=== PATIENT | male | born 1945 | race Caucasian/White ===

== ENCOUNTER 2017-11-02 14:47 | Emergency (ER) | payer MEDICARE, BC, OTHER ==
--- NOTE | 2017-11-02 15:19 | ED ---
General Adult HPI - General Chief complaint: Arrhythmia/Palpitations Stated complaint: Irregular heartbeat Time Seen by Provider: 11/02/17 14:56 Source: patient, RN notes reviewed, old records reviewed Mode of arrival: wheelchair Limitations: no limitations - History of Present Illness Initial comments: This is a 72-year-old male the ER for evaluation of possible RA. Patient sent in by family doctor for evaluation regards to lower heart rate. Patient denies complaints states he feels fine. No other complaints. Patient does have pain pump, but no other new medications. No fevers no cough or congestion no chest pain. Patient states his is interactive her normal checkup and blood heart rate was reading low. I also we will here in triage. - Related Data Home Medications Medication Instructions Recorded Confirmed Citalopram Hydrobromide [CeleXA] 20 mg PO DAILY 10/01/15 11/02/17 Lisinopril [Zestril] 10 mg PO BID 10/01/15 11/02/17 Morphine & Baclofen Infusion Pump 1 dose CONTINUOUS 10/01/15 11/02/17 Atenolol [Tenormin] 25 mg PO DAILY 11/02/17 11/02/17 Methimazole [Tapazole] 5 mg PO DAILY 11/02/17 11/02/17 Mirabegron [Myrbetriq] 50 mg PO DAILY 11/02/17 11/02/17 Pregabalin [Lyrica] 75 mg PO BID 11/02/17 11/02/17 Triamcinolone 0.025% Cream 1 applic TOPICAL DAILY 11/02/17 11/02/17 [Kenalog 0.025% Cream] Allergies Allergy/AdvReac Type Severity Reaction Status Date / Time ampicillin AdvReac Nausea & Verified 11/02/17 15:29 Vomiting sulfamethoxazole AdvReac Nausea & Verified 11/02/17 15:29 [From Bactrim] Vomiting trimethoprim [From Bactrim] AdvReac Nausea & Verified 11/02/17 15:29 Vomiting Review of Systems ROS Statement: Those systems with pertinent positive or pertinent negative responses have been documented in the HPI. ROS Other: All systems not noted in ROS Statement are negative. Past Medical History Past Medical History: Coronary Artery Disease (CAD), Hyperlipidemia History of Any Multi-Drug Resistant Organisms: None Reported Past Surgical History: Orthopedic Surgery Past Psychological History: No Psychological Hx Reported Smoking Status: Former smoker Past Alcohol Use History: None Reported Past Drug Use History: None Reported General Exam Limitations: no limitations General appearance: alert, in no apparent distress Head exam: Present: atraumatic, normocephalic, normal inspection Eye exam: Present: normal appearance, PERRL, EOMI. Absent: scleral icterus, conjunctival injection, periorbital swelling ENT exam: Present: normal exam, mucous membranes moist Neck exam: Present: normal inspection. Absent: tenderness, meningismus, lymphadenopathy Respiratory exam: Present: normal lung sounds bilaterally. Absent: respiratory distress, wheezes, rales, rhonchi, stridor Cardiovascular Exam: Present: regular rate, normal rhythm, normal heart sounds. Absent: systolic murmur, diastolic murmur, rubs, gallop, clicks GI/Abdominal exam: Present: soft, normal bowel sounds. Absent: distended, tenderness, guarding, rebound, rigid Extremities exam: Present: normal inspection, full ROM, normal capillary refill. Absent: tenderness, pedal edema, joint swelling, calf tenderness Back exam: Present: normal inspection Neurological exam: Present: alert, oriented X3, CN II-XII intact Psychiatric exam: Present: normal affect, normal mood Skin exam: Present: warm, dry, intact, normal color. Absent: rash Course Vital Signs 11/02/17 11/02/17 11/02/17 14:51 15:23 16:14 Temperature 98.3 F Pulse Rate 40 L 79 75 Respiratory 20 18 20 Rate Blood Pressure 157/71 151/68 130/76 O2 Sat by Pulse 93 L 98 98 Oximetry - Reevaluation(s) Reevaluation #1: 11/02/17 15:31 Heart rate here in the room does show in the high 70s to 80 EKG Findings - EKG Comments: EKG Findings:: EKG shows sinus rhythm rate of 76, MO 132, QRS 80, QTC 434 Medical Decision Making - Lab Data Result diagrams: 11/02/17 15:00 11/02/17 15:00 Lab Results 11/02/17 11/02/17 11/02/17 Range/Units 15:00 15:00 15:00 WBC 6.9 (3.8-10.6) k/uL RBC 4.40 (4.30-5.90) m/uL Hgb 13.2 (13.0-17.5) gm/dL Hct 41.4 (39.0-53.0) % MCV 94.0 (80.0-100.0) fL MCH 30.1 (25.0-35.0) pg MCHC 32.0 (31.0-37.0) g/dL RDW 13.4 (11.5-15.5) % Plt Count 231 (150-450) k/uL Neutrophils % 70 % Lymphocytes % 18 % Monocytes % 6 % Eosinophils % 4 % Basophils % 1 % Neutrophils # 4.8 (1.3-7.7) k/uL Lymphocytes # 1.3 (1.0-4.8) k/uL Monocytes # 0.4 (0-1.0) k/uL Eosinophils # 0.3 (0-0.7) k/uL Basophils # 0.0 (0-0.2) k/uL PT (9.0-12.0) sec INR (<1.2) APTT (22.0-30.0) sec Sodium 142 (137-145) mmol/L Potassium 5.1 (3.5-5.1) mmol/L Chloride 104 (98-107) mmol/L Carbon Dioxide 30 (22-30) mmol/L Anion Gap 8 mmol/L BUN 16 (9-20) mg/dL Creatinine 0.56 L (0.66-1.25) mg/dL Est GFR (MDRD) Af Amer >60 (>60 ml/min/1.73 sqM) Est GFR (MDRD) Non-Af >60 (>60 ml/min/1.73 sqM) Glucose 108 H (74-99) mg/dL Plasma Lactic Acid Abebe (0.7-2.0) mmol/L Calcium 9.0 (8.4-10.2) mg/dL Phosphorus 4.1 (2.5-4.5) mg/dL Magnesium 2.0 (1.6-2.3) mg/dL Total Bilirubin 0.3 (0.2-1.3) mg/dL AST 16 L (17-59) U/L ALT 19 L (21-72) U/L Alkaline Phosphatase 103 (38-126) U/L Total Creatine Kinase 78 (55-170) U/L CK-MB (CK-2) 1.9 (0.0-2.4) ng/mL CK-MB (CK-2) Rel Index 2.4 Troponin I <0.012 (0.000-0.034) ng/mL Total Protein 6.7 (6.3-8.2) g/dL Albumin 3.8 (3.5-5.0) g/dL 11/02/17 11/02/17 Range/Units 15:00 15:00 WBC (3.8-10.6) k/uL RBC (4.30-5.90) m/uL Hgb (13.0-17.5) gm/dL Hct (39.0-53.0) % MCV (80.0-100.0) fL MCH (25.0-35.0) pg MCHC (31.0-37.0) g/dL RDW (11.5-15.5) % Plt Count (150-450) k/uL Neutrophils % % Lymphocytes % % Monocytes % % Eosinophils % % Basophils % % Neutrophils # (1.3-7.7) k/uL Lymphocytes # (1.0-4.8) k/uL Monocytes # (0-1.0) k/uL Eosinophils # (0-0.7) k/uL Basophils # (0-0.2) k/uL PT 10.8 (9.0-12.0) sec INR 1.1 (<1.2) APTT 23.6 (22.0-30.0) sec Sodium (137-145) mmol/L Potassium (3.5-5.1) mmol/L Chloride (98-107) mmol/L Carbon Dioxide (22-30) mmol/L Anion Gap mmol/L BUN (9-20) mg/dL Creatinine (0.66-1.25) mg/dL Est GFR (MDRD) Af Amer (>60 ml/min/1.73 sqM) Est GFR (MDRD) Non-Af (>60 ml/min/1.73 sqM) Glucose (74-99) mg/dL Plasma Lactic Acid Abebe 0.9 (0.7-2.0) mmol/L Calcium (8.4-10.2) mg/dL Phosphorus (2.5-4.5) mg/dL Magnesium (1.6-2.3) mg/dL Total Bilirubin (0.2-1.3) mg/dL AST (17-59) U/L ALT (21-72) U/L Alkaline Phosphatase (38-126) U/L Total Creatine Kinase (55-170) U/L CK-MB (CK-2) (0.0-2.4) ng/mL CK-MB (CK-2) Rel Index Troponin I (0.000-0.034) ng/mL Total Protein (6.3-8.2) g/dL Albumin (3.5-5.0) g/dL Disposition Clinical Impression: Bradycardia Disposition: HOME SELF-CARE Condition: Good Instructions: Bradycardia (ED) Referrals: Kang Garrett MD [Primary Care Provider] - 1-2 days
[2017-11-02 15:30] LABS: Basophils % (A) 1 %; Eosinophils # (A) 0.3 k/uL (0-0.7); Eosinophils % (A) 4 %; HCT 41.4 % (39.0-53.0); HGB 13.2 gm/dL (13.0-17.5); Lymphocytes # (A) 1.3 k/uL (1.0-4.8); Lymphocytes % (A) 18 %; MCH 30.1 pg (25.0-35.0); Mean Platelet Volume 7.9; Monocytes # (A) 0.4 k/uL (0-1.0); Monocytes % (A) 6 %; Neutrophils # (A) 4.8 k/uL (1.3-7.7); Neutrophils % (A) 70 %; Platelet Count 231 k/uL (150-450); RDW 13.4 % (11.5-15.5); WBC 6.9 k/uL (3.8-10.6)
[2017-11-02 15:38] LABS: INR 1.1 (<1.2); Partial Thromboplastin Time 23.6 sec (22.0-30.0); Prothrombin Time 10.8 sec (9.0-12.0)
--- NOTE | 2017-11-02 15:46 | XR ---
EXAMINATION TYPE: XR chest 2V DATE OF EXAM: 11/02/2017 COMPARISON: 10/04/2012 TECHNIQUE: PA and lateral views submitted. HISTORY: Weakness FINDINGS: Subsegmental consolidation left lung base. Hyperinflation suggests COPD. The heart is enlarged. Upper mediastinum is prominent which may be positional. Suspect lower lobe infiltrate. IMPRESSION: 1. Widened mediastinum recommend CT of the chest. 2. Left lower lobe infiltrate correlate for pneumonia.
[2017-11-02 15:53] LABS: Creatine Kinase 78 U/L (55-170)
[2017-11-02 15:56] LABS: ALT 19 U/L (21-72); AST 16 U/L (17-59); Albumin 3.8 g/dL (3.5-5.0); Alkaline Phosphatase 103 U/L (38-126); Anion Gap 8 mmol/L; Blood Urea Nitrogen 16 mg/dL (9-20); Carbon Dioxide 30 mmol/L (22-30); Chloride 104 mmol/L (98-107); Glucose 108 mg/dL (74-99); Phosphorus 4.1 mg/dL (2.5-4.5); Potassium 5.1 mmol/L (3.5-5.1); Sodium 142 mmol/L (137-145); Total Bilirubin 0.3 mg/dL (0.2-1.3); Total Protein 6.7 g/dL (6.3-8.2)
[2017-11-02 16:06] LABS: Creatine Kinase MB 1.9 ng/mL (0.0-2.4); Troponin I <0.012 ng/mL (0.000-0.034)
[2017-11-02] MEDS ORDERED: RX INFO: IV CONTRAST WAS GIVEN 1 EACH MISC MISCELLANE PRN (16:14)
--- NOTE | 2017-11-02 16:57 | CT ---
EXAMINATION TYPE: CT angio chest DATE OF EXAM: 11/02/2017 4:41 PM COMPARISON: NONE HISTORY: bradycardia. CT DLP: 217.6 mGycm Automated exposure control for dose reduction was used. CONTRAST: CTA scan of the thorax is performed with IV Contrast, patient injected with 100 mL of Omnipaque 350, pulmonary embolism protocol. There are 3-D post processed images.. FINDINGS: There is a large mass at the thoracic inlet that appears to be markedly enlarged thyroid gland that m easures 10 x 5 cm. Thoracic aorta is intact without evidence of aneurysm or dissection. Ascending aorta measures 3.6 cm. I see no filling defects in the pulmonary arteries. There is elevated left diaphragm. There is no pe ricardial effusion. There is no definite pleural effusion. There is subpleural interstitial infiltrat e at the lung bases and more on the right side. There is thoracic levoscoliosis. I see no bony destru ctive process. IMPRESSION: NO EVIDENCE OF PULMONARY EMBOLISM. LARGE MASS AT THE THORACIC INLET CONSISTENT WITH RETROSTERNAL GOIT ER. FIBROTIC CHANGES AT THE LUNG BASES. ELEVATED LEFT DIAPHRAGM COULD RELATE TO DIAPHRAGMATIC PARALYSIS. THERE IS ATELECTASIS AT THE LATERAL LEFT LUNG BASE.
[2017-11-02 17:43] VITALS: BP 135/76; PULSE 83; RESP 18; TEMP 97.8
== END 2017-11-02 17:44 | disposition home or self-care (01) ==
LOC: EC 14:47
DX: R00.1 Bradycardia, unspecified (principal); I25.10 Atherosclerotic heart disease of native coronary artery without angina pectoris; E78.5 Hyperlipidemia, unspecified; Z87.891 Personal history of nicotine dependence; Z79.899 Other long term (current) drug therapy; Z79.891 Long term (current) use of opiate analgesic; Z88.1 Allergy status to other antibiotic agents; Z88.2 Allergy status to sulfonamides
CPT/HCPCS: 36415; 93005; 80053; 82550; 82553; 83605; 83735; 84100; 84484; 85025; 85610; 85730; 71046; 71275; 99285; Q9967

== ENCOUNTER → 2017-11-15 | Outpatient (CLI) | payer MEDICARE, BC, OTHER ==
--- NOTE | 2017-11-22 22:55 | HM ---
HOLTER MONITOR REPORT Patient in his diary did not indicate any significant symptoms. Predominant rhythm appears to be sinus with some artifact. There was some sinus arrhythmia noted. There were isolated ventricular ectopic beats noted. There were also some ventricular couplets seen. There was no evidence of any significant bradyarrhythmia. The heart rate ranged from 51 to 113 beats per minute with average heart rate of 73 beats per minute. There was no evidence of any significant symptoms reported in the diary. FINAL IMPRESSION: Predominantly sinus rhythm with average heart rate of 73 beats per minute. Frequent isolated ventricular ectopic beats were seen. Some of these were seen in the form of couplets and rare triplets. There was no evidence of any significant SVT or bradyarrhythmia. Patient did not report any symptoms. MMODL / IJN: [id number] /
== END | disposition home or self-care (01) ==
LOC: RADECHMAIN 12:56
PROVIDERS: ATTEND Internal Medicine
DX: R94.31 Abnormal electrocardiogram [ECG] [EKG] (principal)
CPT/HCPCS: 93225; 93226

== ENCOUNTER 2018-02-03 11:59 | Day surgery (SDC) | payer MEDICARE, BC, OTHER ==
[2018-02-02 08:21] VITALS: BMI 19.9
[2018-02-03 12:28] VITALS: PULSE 68; RESP 20; TEMP 98.5
[2018-02-03 12:57] LABS: Anion Gap 8 mmol/L; Blood Urea Nitrogen 16 mg/dL (9-20); Carbon Dioxide 30 mmol/L (22-30); Chloride 103 mmol/L (98-107); Glucose 81 mg/dL (74-99); Potassium 4.7 mmol/L (3.5-5.1); Sodium 141 mmol/L (137-145)
[2018-02-03] MEDS ORDERED: LIDOCAINE 2% INJ 20 MG/ML SQ ONE (13:25)
[2018-02-03 14:01] VITALS: BP 140/80
--- NOTE | 2018-02-04 11:51 | IR ---
EXAMINATION TYPE: IR cvc insert >=5 years DATE OF EXAM: 02/03/2018 COMPARISON: NONE CLINICAL HISTORY: Infection Needs long-term intravenous access for antibiotics. PROCEDURE: After informed consent, the skin overlying the right brachial vein was localized with ultrasound and noted to be compressible and patent. An ultrasound image was obtained and submitted on the patient's chart. The overlying skin was prepped and draped and Lidocaine was used for local anesthesia. A sk in pooja was made with a scalpel. Access was gained to the vein under ultrasound guidance with a 21 g auge needle and a 0.018 inch wire was advanced. Access site was dilated with Peel-Away sheath and ca theter tailored to the appropriate length and advanced such that the distal tip is at the cavoatrial junction. Spot image was obtained verifying placement. Catheter was fixed to the skin and a sterile dressing was placed following hemostasis. Catheter was aspirated and flushed with saline. Patient was discharged in stable condition without complication. Maximal barrier technique is utilized. Ultr asound image is documented on the chart. Ultrasound used with sterile technique. Fluoro time and fluoroscopic images submitted to document procedure: 838 intraoperative C-arm images, 1.4 minutes fluoroscopy time IMPRESSION: STATUS POST ULTRASOUND AND FLUOROSCOPIC GUIDED PICC LINE PLACEMENT, READY FOR USE. THIS PROCEDURE WAS PERFORMED BY THE UNDERSIGNED.
== END 2018-02-03 13:50 | disposition home or self-care (01) ==
LOC: CATHCVL 11:59
PROVIDERS: ATTEND Radiology Diagnostic Radiology
DX: N39.0 Urinary tract infection, site not specified (principal); B96.5 Pseudomonas (aeruginosa) (mallei) (pseudomallei) as the cause of diseases classified elsewhere; R31.0 Gross hematuria; N35.014 Post-traumatic urethral stricture, male, unspecified; N45.1 Epididymitis; R35.1 Nocturia; I10 Essential (primary) hypertension; E07.9 Disorder of thyroid, unspecified; M19.90 Unspecified osteoarthritis, unspecified site; F32.9 Major depressive disorder, single episode, unspecified; Z89.519 Acquired absence of unspecified leg below knee; Z79.891 Long term (current) use of opiate analgesic; Z79.899 Other long term (current) drug therapy; Z88.1 Allergy status to other antibiotic agents; Z88.2 Allergy status to sulfonamides; Z87.891 Personal history of nicotine dependence
CPT/HCPCS: 36569; 76937; 77001; 80048; C1751; C1769; J2001

== ENCOUNTER 2019-07-22 17:05 | Observation (INO) | payer MEDICARE, BC, OTHER ==
[2019-07-22] MEDS ORDERED: SODIUM CHLORIDE 0.9% 1,000 ML IV STA ×2 (17:30)
[2019-07-22] MEDS ORDERED: SODIUM CHLORIDE 0.9% 500 ML 500 ML IV STA (17:30)
[2019-07-22] MEDS ORDERED: DIAZEPAM 5 MG/ML 2 ML INJ IVP STA (17:30)
[2019-07-22] MEDS ORDERED: hydrALAZINE HCL 20 MG/ML 1 ML VIAL IVP STA (17:30)
[2019-07-22] MEDS ORDERED: ONDANSETRON 4 MG/2 ML VIAL IVP STA (17:30)
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
[2019-07-22 18:29] LABS: Basophils # (A) 0.1 k/uL (0-0.2); Basophils % (A) 1 %; Eosinophils # (A) 0.1 k/uL (0-0.7); Eosinophils % (A) 1 %; HCT 48.1 % (39.0-53.0); HGB 15.6 gm/dL (13.0-17.5); Lymphocytes # (A) 0.4 k/uL (1.0-4.8); Lymphocytes % (A) 3 %; MCH 30.9 pg (25.0-35.0); MCHC 32.3 g/dL (31.0-37.0); MCV 95.5 fL (80.0-100.0); Mean Platelet Volume 7.5; Monocytes # (A) 0.6 k/uL (0-1.0); Monocytes % (A) 5 %; Neutrophils # (A) 10.9 k/uL (1.3-7.7); Neutrophils % (A) 90 %; Platelet Count 219 k/uL (150-450); RBC 5.04 m/uL (4.30-5.90); WBC 12.2 k/uL (3.8-10.6)
[2019-07-22 18:39] LABS: ALT 17 U/L (21-72); AST 16 U/L (17-59); African American GFR (CKD) >90 (>60 ml/min/1.73 sqM); Albumin 4.4 g/dL (3.5-5.0); Alkaline Phosphatase 79 U/L (38-126); Anion Gap 7 mmol/L; Blood Urea Nitrogen 28 mg/dL (9-20); Calcium 9.4 mg/dL (8.4-10.2); Carbon Dioxide 29 mmol/L (22-30); Chloride 106 mmol/L (98-107); Creatine Kinase 28 U/L (55-170); Glucose 160 mg/dL (74-99); Magnesium 2.1 mg/dL (1.6-2.3); Non-African American GFR(CKD) >90 (>60 ml/min/1.73 sqM); Potassium 4.5 mmol/L (3.5-5.1); Sodium 142 mmol/L (137-145); Total Bilirubin 0.4 mg/dL (0.2-1.3); Total Protein 7.6 g/dL (6.3-8.2)
[2019-07-22] MEDS ORDERED: LORazepam 2 MG/ML INJ IV PRN (20:13)
[2019-07-22] MEDS ORDERED: MORPHINE SULFATE 4 MG/ML SYRINGE IVP STA (20:13)
[2019-07-22] MEDS ORDERED: MORPHINE SULFATE 4 MG/ML SYRINGE IVP PRN (20:13)
[2019-07-22] MEDS ORDERED: LORazepam 2 MG/ML INJ IV STA (20:13)
[2019-07-22 21:16] LABS: Appearance,Urine Clear (Clear); Bacteria,Urine Many /hpf; Bilirubin,Urine Negative (Negative); Blood,Urine Negative (Negative); Color,Urine Light Yellow; Glucose,Urine (UA) Negative (Negative); Ketones,Urine Negative (Negative); Leukocyte Esterase,Urine Negative (Negative); Mucus,Urine Rare /hpf; Nitrite,Urine Positive (Negative); PH, Urine 5.5 (5.0-8.0); Protein,Urine Trace (Negative); RBC,Urine <1 /hpf (0-5); Specific Gravity,Urine 1.017 (1.001-1.035); Squamous Epithelial Cell,Urine <1 /hpf (0-4); Urobilinogen,Urine <2.0 mg/dL (<2.0); WBC,Urine 5 /hpf (0-5)
[2019-07-22 21:29] LABS: Amphetamine Screen,Urine Not Detected (NotDetected); Barbiturate Screen,Urine Not Detected (NotDetected); Benzodiazepines Screen,Urine Not Detected (NotDetected); Cocaine Screen,Urine Not Detected (NotDetected); Methadone Screen, Urine Not Detected (NotDetected); Opiate Screen,Urine Detected (NotDetected); Oxycodone Screen, Urine Not Detected (NotDetected); Phencyclidine Screen,Urine Not Detected (NotDetected); Tricyclic Antidepressant,Urine Not Detected (NotDetected); Urn Cannabinoid Scrn Not Detected (NotDetected)
[2019-07-22 23:23] VITALS: BMI 19.3
[2019-07-23] MEDS: LISINOPRIL 10 MG TAB PO SCH ×2 (10:11→20:53)
[2019-07-23] MEDS: hydrALAZINE HCL 20 MG/ML 1 ML VIAL IVP PRN (10:12)
[2019-07-23] MEDS: DULoxetine HCL 20 MG CAPSULE.DR PO SCH ×2 (10:12→21:39)
[2019-07-23] MEDS ORDERED: ONDANSETRON 4 MG/2 ML VIAL IVP PRN (11:22)
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
[2019-07-23] MEDS: LORazepam 1 MG TAB PO PRN ×2 (11:53→20:53)
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
[2019-07-23] MEDS ORDERED: HEPARIN SODIUM,PORCINE 5,000 UNIT/ML 1 ML VIAL SQ SCH (21:00)
[2019-07-23] MEDS ORDERED: NON FORMULARY DRUG (Mirabegron [Myrbetriq] 50 MG) PO SCH (21:00)
[2019-07-24 04:28] VITALS: TEMP 98.3
[2019-07-24] MEDS: hydrALAZINE HCL 20 MG/ML 1 ML VIAL IVP PRN (05:37)
[2019-07-24] MEDS: LISINOPRIL 10 MG TAB PO SCH (07:31)
[2019-07-24] MEDS: DULoxetine HCL 20 MG CAPSULE.DR PO SCH (07:32)
[2019-07-24 07:52] VITALS: BP 127/69; PULSE 120; RESP 15
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
[2019-07-24] MEDS ORDERED: METHIMAZOLE 5 MG TAB PO SCH (09:00)
[2019-07-24] MEDS ORDERED: PANTOPRAZOLE 40 MG/10 ML VIAL IVP SCH (09:00)
== END 2019-07-24 08:54 | disposition home or self-care (01) ==
LOC: EC 17:05 → 4MS4W 21:36
PROVIDERS: ADMIT Internal Medicine Geriatric Medicine; ATTEND Internal Medicine Geriatric Medicine
DX: G92 Toxic encephalopathy (principal); T40.2X5A Adverse effect of other opioids, initial encounter; G89.4 Chronic pain syndrome; I16.1 Hypertensive emergency; I10 Essential (primary) hypertension; E05.90 Thyrotoxicosis, unspecified without thyrotoxic crisis or storm; F32.9 Major depressive disorder, single episode, unspecified; N31.9 Neuromuscular dysfunction of bladder, unspecified; E78.5 Hyperlipidemia, unspecified; I49.9 Cardiac arrhythmia, unspecified; R01.1 Cardiac murmur, unspecified; L98.8 Other specified disorders of the skin and subcutaneous tissue; G81.91 Hemiplegia, unspecified affecting right dominant side; T87.34 Neuroma of amputation stump, left lower extremity; R53.83 Other fatigue; R63.0 Anorexia; R11.0 Nausea; R33.9 Retention of urine, unspecified; Z97.8 Presence of other specified devices; Z79.899 Other long term (current) drug therapy; Z79.891 Long term (current) use of opiate analgesic; Z88.0 Allergy status to penicillin; Z88.2 Allergy status to sulfonamides; Z88.8 Allergy status to other drugs, medicaments and biological substances; Z87.440 Personal history of urinary (tract) infections; Z87.828 Personal history of other (healed) physical injury and trauma; Z89.612 Acquired absence of left leg above knee; Z99.3 Dependence on wheelchair; Z98.890 Other specified postprocedural states; Z87.898 Personal history of other specified conditions; Z87.891 Personal history of nicotine dependence; Z88.5 Allergy status to narcotic agent; Z80.52 Family history of malignant neoplasm of bladder; Z80.1 Family history of malignant neoplasm of trachea, bronchus and lung
CPT/HCPCS: 96376 ×2; 96361 ×2; 96372; 96374; 96375; 99285; 36415; 80053; 82550; 83605; 83735; 84100; 84443; 84484; 85025; 81001; 80306; G0378 ×3; J2270 ×2; J0360 ×3; J1644; J3360; J2405 ×2

== ENCOUNTER 2020-03-22 09:51 | Inpatient (IN) | payer MEDICARE, BC, OTHER ==
[2020-03-22 10:12] LABS: Glucose,Whole Blood 120 mg/dL (75-99)
[2020-03-22] MEDS ORDERED: SODIUM CHLORIDE 0.9% 500 ML 500 ML IV STA (10:25)
[2020-03-22] MEDS ORDERED: MORPHINE SULFATE 4 MG/ML SYRINGE IV STA (10:25)
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
[2020-03-22 11:25] LABS: ALT 13 U/L (4-49); AST 25 U/L (17-59); African American GFR (CKD) >90 (>60 ml/min/1.73 sqM); Albumin 3.2 g/dL (3.5-5.0); Alkaline Phosphatase 114 U/L (38-126); Blood Urea Nitrogen 22 mg/dL (9-20); Calcium 8.8 mg/dL (8.4-10.2); Chloride 93 mmol/L (98-107); Glucose 119 mg/dL (74-99); Magnesium 2.1 mg/dL (1.6-2.3); Non-African American GFR(CKD) >90 (>60 ml/min/1.73 sqM); Potassium 4.9 mmol/L (3.5-5.1); Sodium 140 mmol/L (137-145); Total Bilirubin 0.8 mg/dL (0.2-1.3); Total Protein 5.8 g/dL (6.3-8.2)
--- NOTE | 2020-03-22 11:26 | XR ---
EXAMINATION TYPE: XR chest 2V DATE OF EXAM: 03/22/2020 COMPARISON: 11/02/2017 HISTORY: Shortness of breath TECHNIQUE: Frontal and lateral views of the chest are obtained. FINDINGS: Scattered senescent parenchymal changes noted. Hyperinflation compatible with COPD. Right lower lobe infiltrate and/or small effusion noted. Left basilar parenchymal scarring is suggest ed. Pulmonary venous congestion without overt failure. Heart size is stable. Prominence of the paratracheal soft tissue unchanged from prior study. No evidence for hilar prominence. Degenerative changes dorsal spine. IMPRESSION: 1. Right lower lobe infiltrate and/or small effusion noted. Left basilar parenchymal scarring is sugg ested. Pulmonary venous congestion without overt failure.
[2020-03-22 11:27] LABS: Prothrombin Time 10.1 sec (9.0-12.0)
[2020-03-22 11:31] LABS: Anion Gap 3 mmol/L
[2020-03-22 11:40] LABS: Anisocytosis Slight; Basophils % (A) 0 %; Eosinophils # (A) 0.3 k/uL (0-0.7); Eosinophils % (A) 4 %; HCT 33.1 % (39.0-53.0); HGB 9.7 gm/dL (13.0-17.5); Hypochromasia Marked; Lymphocytes # (A) 0.8 k/uL (1.0-4.8); Lymphocytes % (A) 11 %; MCHC 29.2 g/dL (31.0-37.0); MCV 95.9 fL (80.0-100.0); Macrocytosis Slight; Mean Platelet Volume 7.5; Monocytes # (A) 0.7 k/uL (0-1.0); Monocytes % (A) 10 %; Neutrophils # (A) 5.1 k/uL (1.3-7.7); Neutrophils % (A) 72 %; Platelet Count 267 k/uL (150-450); RBC 3.45 m/uL (4.30-5.90); RDW 17.7 % (11.5-15.5); WBC 7.1 k/uL (3.8-10.6)
[2020-03-22 11:49] LABS: Appearance,Urine Turbid (Clear); Bacteria,Urine Few /hpf; Bilirubin,Urine Negative (Negative); Blood,Urine Small (Negative); Color,Urine Yellow; Glucose,Urine (UA) Negative (Negative); Hyaline Casts,Urine 4 /lpf (0-2); Ketones,Urine Negative (Negative); Leukocyte Esterase,Urine Large (Negative); Mucus,Urine Rare /hpf; Nitrite,Urine Negative (Negative); Protein,Urine 2+ (Negative); RBC,Urine 9 /hpf (0-5); Specific Gravity,Urine 1.011 (1.001-1.035); Urobilinogen,Urine <2.0 mg/dL (<2.0); WBC,Urine >182 /hpf (0-5)
[2020-03-22 11:53] LABS: Carbon Dioxide 44 mmol/L (22-30)
[2020-03-22 12:07] LABS: Creatine Kinase 23 U/L (55-170)
[2020-03-22] MEDS ORDERED: LEVOFLOXACIN 750MG-D5W PMX 750 MG in DEXTROSE/WATER 1 150ML.BAG IVPB STA (13:32)
[2020-03-22] MEDS ORDERED: PNEUMONIA PROTOCOL UTILIZED 1 EACH MISC PO PRN (13:32)
[2020-03-22] MEDS: SODIUM CHLORIDE 0.9% 1,000 ML IV SCH (14:14)
[2020-03-22] MEDS: ALBUTEROL NEBULIZED 2.5 MG/3 ML INHALATION SCH ×2 (16:22→21:45)
[2020-03-22] MEDS ORDERED: polyethylene glycoL 3350 17 GM POWD.PACK PO PRN (21:10)
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
[2020-03-22] MEDS ORDERED: DOXYCYCLINE 100 MG in SODIUM CHLORIDE 0.9% 100 ML IVPB SCH (22:00)
[2020-03-22] MEDS: LORazepam 0.5 MG TAB PO PRN (22:10)
[2020-03-22] MEDS ORDERED: MIRTAZAPINE 15 MG TAB PO STA (23:28)
[2020-03-22] MEDS: DOXYCYCLINE 100 MG CAP PO SCH (23:47)
[2020-03-22] MEDS: BACLOFEN 10 MG TAB PO SCH (23:47)
[2020-03-22] MEDS: GABAPENTIN 100 MG CAP PO SCH (23:47)
[2020-03-23] MEDS: ALBUTEROL NEBULIZED 2.5 MG/3 ML INHALATION SCH ×4 (07:15→20:51)
[2020-03-23] MEDS: FLUTICASONE 44 MCG INHALER INHALATION SCH ×2 (07:15→20:52)
[2020-03-23] MEDS: LORazepam 0.5 MG TAB PO PRN (08:58)
[2020-03-23] MEDS: MULTIVITAMINS, THERA 1 EACH TAB PO SCH (08:58)
[2020-03-23] MEDS: GABAPENTIN 100 MG CAP PO SCH ×3 (08:58→23:13)
[2020-03-23] MEDS: PANTOPRAZOLE 40 MG TABLET PO SCH (08:58)
[2020-03-23] MEDS: METOPROLOL TARTRATE 25 MG TAB PO SCH ×2 (08:58→19:54)
[2020-03-23] MEDS: SENNOSIDES-DOCUSATE SODIUM 1 EACH TAB PO SCH ×2 (08:58→19:54)
[2020-03-23] MEDS: BACLOFEN 10 MG TAB PO SCH ×3 (08:58→23:13)
[2020-03-23] MEDS: DOXYCYCLINE 100 MG CAP PO SCH (08:59)
[2020-03-23] MEDS: methIMAzole 5 MG TAB PO SCH (08:59)
[2020-03-23] MEDS: ESCITALOPRAM 10 MG TAB PO SCH (08:59)
[2020-03-23] MEDS: ENOXAPARIN 40 MG/0.4 ML SYRINGE SQ SCH (08:59)
[2020-03-23] MEDS: FERROUS SULFATE 325 MG TAB PO SCH ×2 (08:59→19:54)
[2020-03-23] MEDS: lisinopriL 10 MG TAB PO SCH (08:59)
[2020-03-23] MEDS: SODIUM CHLORIDE 0.9% 1,000 ML IV SCH (09:46)
[2020-03-23 10:03] LABS: Anisocytosis Slight; Basophils % (A) 0 %; Eosinophils # (A) 0.1 k/uL (0-0.7); Eosinophils % (A) 3 %; HCT 25.5 % (39.0-53.0); Hypochromasia Marked; Lymphocytes # (A) 0.8 k/uL (1.0-4.8); Lymphocytes % (A) 14 %; MCH 28.7 pg (25.0-35.0); MCHC 29.1 g/dL (31.0-37.0); MCV 98.7 fL (80.0-100.0); Macrocytosis Slight; Mean Platelet Volume 8.3; Monocytes # (A) 0.4 k/uL (0-1.0); Monocytes % (A) 7 %; Neutrophils # (A) 4.2 k/uL (1.3-7.7); Neutrophils % (A) 75 %; Platelet Count 244 k/uL (150-450); RBC 2.59 m/uL (4.30-5.90); WBC 5.7 k/uL (3.8-10.6)
[2020-03-23 10:11] LABS: ALT 11 U/L (4-49); AST 19 U/L (17-59); African American GFR (CKD) >90 (>60 ml/min/1.73 sqM); Albumin 2.8 g/dL (3.5-5.0); Alkaline Phosphatase 101 U/L (38-126); Blood Urea Nitrogen 18 mg/dL (9-20); Calcium 8.3 mg/dL (8.4-10.2); Chloride 92 mmol/L (98-107); Glucose 259 mg/dL (74-99); Non-African American GFR(CKD) >90 (>60 ml/min/1.73 sqM); Potassium 4.2 mmol/L (3.5-5.1); Sodium 140 mmol/L (137-145); Total Bilirubin 0.6 mg/dL (0.2-1.3)
[2020-03-23 10:12] LABS: HGB 7.4 gm/dL (13.0-17.5)
[2020-03-23 10:17] LABS: Anion Gap 5 mmol/L
[2020-03-23 10:41] LABS: Carbon Dioxide 43 mmol/L (22-30)
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
[2020-03-23] MEDS: CLINDAMYCIN 600 MG in DEXTROSE 5% IN WATER 50 ML IVPB SCH ×6 (12:32→23:11)
[2020-03-23] MEDS: CEFEPIME 2 GM in SODIUM CHLORIDE 0.9% 100 ML IVPB SCH ×2 (12:42→19:53)
[2020-03-23 13:00] LABS: Glucose,Whole Blood 134 mg/dL (75-99)
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
--- NOTE | 2020-03-23 16:26 | XR ---
EXAMINATION TYPE: XR chest 2V DATE OF EXAM: 03/23/2020 COMPARISON: 03/22/2020 HISTORY: 74-year-old male pneumonia TECHNIQUE: AP and lateral views FINDINGS: Marked levoconvex scoliosis. There are moderate right and small left pleural effusions. This obscures the heart margins. Overall appearance is unchanged. Unable to exclude pulmonary vascular congestion. IMPRESSION: Continued moderate right and small left pleural effusions with adjacent atelectasis and/or consolidat ion. Correlate to exclude background of mild pulmonary vascular congestion. Leftward scoliosis.
[2020-03-23] MEDS: MIRTAZAPINE 15 MG TAB PO SCH (19:54)
[2020-03-24] MEDS: ACETAMINOPHEN TAB 325 MG TAB PO PRN ×2 (03:06→11:14)
[2020-03-24] MEDS: PANTOPRAZOLE 40 MG TABLET PO SCH (07:35)
[2020-03-24] MEDS: METOPROLOL TARTRATE 25 MG TAB PO SCH ×2 (07:35→21:09)
[2020-03-24] MEDS: BACLOFEN 10 MG TAB PO SCH ×3 (07:35→23:18)
[2020-03-24] MEDS: GABAPENTIN 100 MG CAP PO SCH ×3 (07:35→23:17)
[2020-03-24] MEDS: MULTIVITAMINS, THERA 1 EACH TAB PO SCH (07:35)
[2020-03-24] MEDS: lisinopriL 10 MG TAB PO SCH (07:35)
[2020-03-24] MEDS: SENNOSIDES-DOCUSATE SODIUM 1 EACH TAB PO SCH ×2 (07:35→21:09)
[2020-03-24] MEDS: FERROUS SULFATE 325 MG TAB PO SCH ×2 (07:36→21:08)
[2020-03-24] MEDS: ENOXAPARIN 40 MG/0.4 ML SYRINGE SQ SCH (07:36)
[2020-03-24] MEDS: CEFEPIME 2 GM in SODIUM CHLORIDE 0.9% 100 ML IVPB SCH ×2 (07:36→21:06)
[2020-03-24] MEDS: methIMAzole 5 MG TAB PO SCH (07:37)
[2020-03-24] MEDS: ESCITALOPRAM 10 MG TAB PO SCH (07:37)
[2020-03-24] MEDS: CLINDAMYCIN 600 MG in DEXTROSE 5% IN WATER 50 ML IVPB SCH ×4 (08:15→15:51)
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
[2020-03-24] MEDS: ALBUTEROL NEBULIZED 2.5 MG/3 ML INHALATION SCH ×4 (09:37→20:37)
[2020-03-24] MEDS: FLUTICASONE 44 MCG INHALER INHALATION SCH ×2 (09:37→20:39)
[2020-03-24 11:01] LABS: African American GFR (CKD) >90 (>60 ml/min/1.73 sqM); Anion Gap 4 mmol/L; Blood Urea Nitrogen 20 mg/dL (9-20); Calcium 8.5 mg/dL (8.4-10.2); Carbon Dioxide 40 mmol/L (22-30); Chloride 96 mmol/L (98-107); Glucose 166 mg/dL (74-99); Non-African American GFR(CKD) >90 (>60 ml/min/1.73 sqM); Potassium 4.9 mmol/L (3.5-5.1); Sodium 140 mmol/L (137-145)
[2020-03-24] MEDS: LORazepam 0.5 MG TAB PO PRN (11:15)
[2020-03-24 11:21] LABS: Anisocytosis Slight; HCT 26.6 % (39.0-53.0); HGB 7.4 gm/dL (13.0-17.5); Hypochromasia Marked; MCH 26.9 pg (25.0-35.0); MCHC 27.9 g/dL (31.0-37.0); MCV 96.4 fL (80.0-100.0); Macrocytosis Slight; Mean Platelet Volume 9.7; Platelet Count 261 k/uL (150-450); RBC 2.76 m/uL (4.30-5.90); RDW 18.4 % (11.5-15.5); WBC 5.7 k/uL (3.8-10.6)
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
[2020-03-24] MEDS: MIRTAZAPINE 15 MG TAB PO SCH (21:09)
--- NOTE | 2020-03-25 01:02 | PN ---
PROGRESS NOTE DATE OF SERVICE: 03/24/2020 REASON FOR FOLLOWUP: Pneumonia and urinary tract infection. INTERVAL HISTORY: The patient is currently afebrile. The patient is hemodynamically stable. The patient remains to be lethargic and sleepy and was not able to provide any history. Per nursing staff, no vomiting or any diarrhea. PHYSICAL EXAMINATION: Blood pressure 121/58 with a pulse of 59, temperature 98.1. He is 92% on 2 L nasal cannula. General description is an elderly male lying in bed in no distress. RESPIRATORY SYSTEM: Unlabored breathing. breath sounds at the bases. No wheeze. HEART: S1, S2. Regular rate and rhythm. ABDOMEN: Soft, no tenderness. LABS: Hemoglobin is 7.4, white count 5.7, BUN of 20, creatinine 0.37. Urine with Pseudomonas aeruginosa and VRE. Pseudomonas sensitive to ceftazidime. DIAGNOSTIC IMPRESSION AND PLAN: Patient admitted to the hospital with mental status changes, weakness with concern for urinary tract infection and possible pneumonia. He did have finalized with Pseudomonas and Enterococcus faecalis VRE. We will discontinue clindamycin and add daptomycin to cover for the VRE. Continue cefepime and monitor clinical course closely. MMODL / IJN: [id number] /
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
[2020-03-25 07:44] LABS: Anisocytosis Slight; HCT 27.4 % (39.0-53.0); HGB 7.8 gm/dL (13.0-17.5); Hypochromasia Marked; MCH 27.9 pg (25.0-35.0); MCHC 28.5 g/dL (31.0-37.0); MCV 97.8 fL (80.0-100.0); Macrocytosis Slight; Mean Platelet Volume 8.1; Platelet Count 288 k/uL (150-450); RDW 18.4 % (11.5-15.5); WBC 6.1 k/uL (3.8-10.6)
[2020-03-25] MEDS: ENOXAPARIN 40 MG/0.4 ML SYRINGE SQ SCH ×2 (07:50→08:16)
[2020-03-25] MEDS: GABAPENTIN 100 MG CAP PO SCH (07:51)
[2020-03-25] MEDS: lisinopriL 10 MG TAB PO SCH (07:51)
[2020-03-25] MEDS: SENNOSIDES-DOCUSATE SODIUM 1 EACH TAB PO SCH (07:51)
[2020-03-25] MEDS: METOPROLOL TARTRATE 25 MG TAB PO SCH (07:52)
[2020-03-25] MEDS: FERROUS SULFATE 325 MG TAB PO SCH (07:52)
[2020-03-25] MEDS: methIMAzole 5 MG TAB PO SCH (07:52)
[2020-03-25] MEDS: ESCITALOPRAM 10 MG TAB PO SCH (07:52)
[2020-03-25] MEDS: PANTOPRAZOLE 40 MG TABLET PO SCH (07:52)
[2020-03-25] MEDS: BACLOFEN 10 MG TAB PO SCH (07:52)
[2020-03-25] MEDS: MULTIVITAMINS, THERA 1 EACH TAB PO SCH (07:52)
[2020-03-25] MEDS: CEFEPIME 2 GM in SODIUM CHLORIDE 0.9% 100 ML IVPB SCH (07:52)
[2020-03-25 07:58] LABS: African American GFR (CKD) >90 (>60 ml/min/1.73 sqM); Blood Urea Nitrogen 14 mg/dL (9-20); Calcium 8.2 mg/dL (8.4-10.2); Chloride 97 mmol/L (98-107); Glucose 97 mg/dL (74-99); Non-African American GFR(CKD) >90 (>60 ml/min/1.73 sqM); Potassium 4.5 mmol/L (3.5-5.1); Sodium 139 mmol/L (137-145)
[2020-03-25] MEDS: FLUTICASONE 44 MCG INHALER INHALATION SCH (08:01)
[2020-03-25] MEDS: ALBUTEROL NEBULIZED 2.5 MG/3 ML INHALATION SCH ×2 (08:01→12:58)
[2020-03-25 08:05] LABS: Anion Gap 0 mmol/L
[2020-03-25 08:18] LABS: Carbon Dioxide 42 mmol/L (22-30)
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
--- NOTE | 2020-03-25 13:11 | PN ---
PROGRESS NOTE DATE OF SERVICE: 03/25/2020 REASON FOR FOLLOWUP: UTI and question of pneumonia. INTERVAL HISTORY: Patient is currently afebrile. The patient is more awake and alert. The patient denies having any chest pain or shortness of breath. Occasional cough. No abdominal pain. No diarrhea. PHYSICAL EXAMINATION: Blood pressure 171/77 with a pulse of 73, temperature 98.6. He is 94% on 2 L nasal cannula. General description is an elderly male lying in bed in no distress. Respiratory system: Unlabored breathing. Lungs clear to auscultation anteriorly. Heart S1, S2. Regular rate and rhythm. Abdomen with no tenderness. LABS: Hemoglobin 7.1, white count 6.1, BUN of 14, creatinine 0.26. Urine with Pseudomonas and VRE. DIAGNOSTIC IMPRESSION AND PLAN: Patient was admitted to the hospital with mental status changes. Concern likely for UTI plus-minus pneumonia. The patient is currently responding to daptomycin and will continue for about week in the outpatient setting through a PICC line. Continue supportive care. MMODL / IJN: [id number] /
[2020-03-25 15:59] VITALS: BP 145/74; PULSE 82; RESP 16; TEMP 97.8
--- NOTE | 2020-03-26 21:30 | CDI ---
Documentation Clarification Form Date: 03/26/20 From: Gosia Campa Phone: If you have a question about this query, please contact Kiley León, Laundry Assistant at [phone] between 8am and 5pm. Admit Date: 03/22/20 Discharge Date:03/25/20 Patient Name: Jerrod Raman Visit Number: [id number] ATTENTION: The Clinical Documentation Specialists (CDI) and [facility] Coding Staff appreciate your assistance in clarifying documentation. Please respond to the clarification below the line at the bottom and electronically sign. The CDI & [facility] Coding staff will review the response and follow-up if needed. Please note: Queries are made part of the Legal Health Record. If you have any questions, please contact the author of this message via ITS. Dear Dr. Linares Altered Mental Status was documented in the H&P and Isa Garcia's progress notes. Dr. Bundy and Dr. Soriano documented altered mental status secondary to sepsis in their notes. History/Risk Factors: Cath associated UTI with sepsis, aspiration pneumonia, acute hypoxic and hypercapnic respiratory failure. Clinical Indicators: Confused Labs: Hgb/Hct 9.7?33.1, Carbon dioxide 44, Treatment: IV Clindamycin, Fluid Bolus: 1/2 liter NS In your professional opinion, please clarify the etiology of the Altered Mental Status, if known. Delirium (specify cause): Dementia (if know, specify Type and if with/without Behavioral Disturbance) XX Encephalopathy (specify Type and Underlying Medical Illness)___secondary to infection Other condition (please specify) Unable to determine MTDD
== END 2020-03-25 15:14 | DRG 698 ==
LOC: EC 09:51 → EEVIPCON 13:30 → 4SSUR 13:30
PROVIDERS: ADMIT Internal Medicine Geriatric Medicine; ATTEND Internal Medicine Geriatric Medicine
DX: T83.511A Infection and inflammatory reaction due to indwelling urethral catheter, initial encounter (principal); A41.52 Sepsis due to Pseudomonas; A41.81 Sepsis due to Enterococcus; G82.50 Quadriplegia, unspecified; J69.0 Pneumonitis due to inhalation of food and vomit; J96.01 Acute respiratory failure with hypoxia; J96.02 Acute respiratory failure with hypercapnia; Z16.21 Resistance to vancomycin; F33.9 Major depressive disorder, recurrent, unspecified; J98.11 Atelectasis; S72.401A Unspecified fracture of lower end of right femur, initial encounter for closed fracture; S42.301A Unspecified fracture of shaft of humerus, right arm, initial encounter for closed fracture; G93.40 Encephalopathy, unspecified; N39.0 Urinary tract infection, site not specified; I27.20 Pulmonary hypertension, unspecified; Z66 Do not resuscitate; Z20.828 Contact with and (suspected) exposure to other viral communicable diseases; D50.9 Iron deficiency anemia, unspecified; E03.9 Hypothyroidism, unspecified; E78.5 Hyperlipidemia, unspecified; G89.4 Chronic pain syndrome; I10 Essential (primary) hypertension; M41.9 Scoliosis, unspecified; B19.20 Unspecified viral hepatitis C without hepatic coma; R33.9 Retention of urine, unspecified; M54.5 Low back pain; G62.9 Polyneuropathy, unspecified; D36.13 Benign neoplasm of peripheral nerves and autonomic nervous system of lower limb, including hip; R32 Unspecified urinary incontinence; Z91.5 Personal history of self-harm; Z87.440 Personal history of urinary (tract) infections; Z87.891 Personal history of nicotine dependence; Z89.612 Acquired absence of left leg above knee; Z79.51 Long term (current) use of inhaled steroids; Z79.899 Other long term (current) drug therapy; Z88.1 Allergy status to other antibiotic agents; Z88.6 Allergy status to analgesic agent; Z88.5 Allergy status to narcotic agent; Z88.0 Allergy status to penicillin; Z88.2 Allergy status to sulfonamides; Z88.8 Allergy status to other drugs, medicaments and biological substances; Z80.1 Family history of malignant neoplasm of trachea, bronchus and lung; Z80.52 Family history of malignant neoplasm of bladder; Y84.6 Urinary catheterization as the cause of abnormal reaction of the patient, or of later complication, without mention of misadventure at the time of the procedure
CPT/HCPCS: 36415; 71046; 80048; 80053; 81001; 82550; 83605; 83735; 84443; 84484; 85025; 85027; 85610; 85730; 87040; 87077; 87086; 87186; 93005; 94640; 94760; 96361; 96365; 96368; 96375; 99285